=== PATIENT | female | born 1975 | race Caucasian/White ===

== ENCOUNTER 2019-03-13 23:23 | Emergency (ER) | payer BC, OTHER ==
[2019-03-13] MEDS ORDERED: Metoprolol Tartrate 25 MG Tab PO ONE (23:30)
[2019-03-13] MEDS ORDERED: LORazepam 0.5 MG Tab PO ONE (23:30)
[2019-03-14 00:07] LABS: CHLORIDE,CL 105 mmol/L (98-107); SODIUM,NA 140 mmol/L (136-145)
--- NOTE | 2019-03-14 00:21 | EDM.PDOC ---
ED HPI GENERAL MEDICAL PROBLEM - General Chief Complaint: General Stated Complaint: Generalized unwell, dizziness, HTN Time Seen by Provider: 03/13/19 23:39 Source of Information: Reports: Patient History Limitations: Reports: No Limitations - History of Present Illness INITIAL COMMENTS - FREE TEXT/NARRATIVE: Patient comes to ER complaining of not feeling well over the last few days. Fatigued, sometimes light headed. Tingly arms/legs at times. 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 Knows she has had elevated BP in past that was being 'watched' but was not started on medication. Denies fever/chills. No new meds/supplements. No headaches/vision changes/other HEENT changes. Resp negative for cough/SOB/chest discomfort. CV: heart felt like it was pounding at times, but no tachycardia/chest pain. GI negative for nausea/emesis/appetite change/bowel changes. negative for dysuria/UTI complaints. Neuro negative for one sided weakness/focal changes other than above mentioned intermittent generalized tingling. psych negative for acute changes. Did have family member recently of an aneurysm and friend of [place]. - Related Data Allergies Allergy/AdvReac Type Severity Reaction Status Date / Time No Known Allergies Allergy Verified 03/13/19 23:24 Home Meds: Home Meds Metoprolol Succinate 25 mg PO DAILY #10 tab.er.24h 03/14/19 [Rx] Past Medical History HEENT History: Reports: Impaired Vision Cardiovascular History: Reports: Other (See Below) Other Cardiovascular History: Borderline hypertension without medical treatment Respiratory History: Reports: Other (See Below) Other Respiratory History: Exercise induced asthma in highschool and college BLIND EYELETTER History: Reports: Other (See Below) Other BLIND EYELETTER History: 3 c-sections - Past Surgical History Musculoskeletal Surgical History: Reports: Other (See Below) Other Musculoskeletal Surgeries/Procedures:: Left ACL repair Social & Family History - Tobacco Use Smoking Status *Q: Current Every Day Smoker Years of Tobacco use: 20 Packs/Tins Daily: 1 Smoking Cessation Information Provided To Patient: Patient Refused - Caffeine Use Caffeine Use: Reports: Coffee, Soda - Alcohol Use Alcohol Use History: No - Recreational Drug Use Recreational Drug Use: No ED ROS GENERAL - Review of Systems Review Of Systems: ROS reveals no pertinent complaints other than HPI. ED EXAM, GENERAL - Physical Exam Exam: See Below Exam Limited By: No Limitations General Appearance: Alert, No Apparent Distress, Obese Eye Exam: Bilateral Eye: EOMI, PERRL Ears: Normal External Exam, Hearing Grossly Normal Nose: No: Nasal Deformity, Nasal Swelling, Nasal Drainage Throat/Mouth: Normal Lips, Normal Voice, No Airway Compromise Head: Atraumatic, Normocephalic Neck: Normal Inspection, Supple, Non-Tender, Full Range of Motion Respiratory/Chest: No Respiratory Distress, Lungs Clear, Normal Breath Sounds, No Accessory Muscle Use, Chest Non-Tender Cardiovascular: Normal Peripheral Pulses, Regular Rate, Rhythm, No Edema, No Murmur Peripheral Pulses: 2+: Radial (L), Radial (R), Dorsalis Pedis (L), Dorsalis Pedis (R) GI/Abdominal: Normal Bowel Sounds, Soft, Non-Tender, No Distention (Female) Exam: Deferred Rectal (Female) Exam: Deferred Back Exam: No: CVA Tenderness (L), CVA Tenderness (R), Muscle Spasm Extremities: Normal Inspection, Non-Tender, No Pedal Edema, Normal Capillary Refill Neurological: Alert, Oriented, Normal Cognition, Normal Gait, No Motor/Sensory Deficits Psychiatric: Normal Affect, Normal Mood Skin Exam: Warm, Dry, Intact, Normal Color, No Rash EKG INTERPRETATION EKG Date: 03/14/19 Time: 23:41 Rhythm: NSR Rate (Beats/Min): 74 [place]: Normal P-Wave: Present QRS: Normal ST-T: Normal QT: Normal Comparison: NA - No Prior EKG Course - Vital Signs Last Recorded V/S: Last Vital Signs Temp 36.7 C 03/13/19 23:30 Pulse 71 03/14/19 00:38 Resp 15 03/14/19 01:40 BP 148/90 H 03/14/19 01:40 Pulse Ox 99 03/14/19 01:40 - Orders/Labs/Meds Orders: Active Orders 24 hr Category Date Time Status EKG Documentation Completion [RC] ASDIRECTED Care 03/13/19 23:31 Active EKG 12 Lead [EK] Routine Ther 03/13/19 23:31 Ordered Labs: Laboratory Tests 03/13/19 03/13/19 03/14/19 Range/Units 23:40 23:40 00:00 WBC 8.2 (4.0-10.2) K/uL RBC 4.64 (3.77-5.09) M/uL Hgb 12.4 (11.7-15.5) g/dL Hct 38.2 (34.0-46.0) % MCV 82.3 L (84.0-98.0) fL MCH 26.7 L (28.2-33.3) pg MCHC 32.5 (31.7-36.0) g/dL RDW 15.8 H (11.2-14.1) % Plt Count 278 (150-350) K/uL Neut % (Auto) 59.2 (45.0-80.0) % Lymph % (Auto) 32.1 (10.0-50.0) % Stanton % (Auto) 7.3 (2.0-14.0) % Eos % (Auto) 1.2 (0.0-5.0) % Baso % (Auto) 0.2 (0.0-2.0) % Neut # (Auto) 4.83 (1.40-7.00) K/uL Lymph # (Auto) 2.62 (0.50-3.50) K/uL Stanton # (Auto) 0.60 (0.00-1.00) K/uL Eos # (Auto) 0.10 (0.00-0.50) K/uL Baso # (Auto) 0.02 (0.00-0.20) K/uL Sodium 140 (136-145) mmol/L Potassium 3.6 (3.5-5.1) mmol/L Chloride 105 (98-107) mmol/L Carbon Dioxide 23.3 (21.0-32.0) mmol/L BUN 15 (7-18) mg/dL Creatinine 0.87 (0.51-1.17) mg/dL Est Cr Clr Drug Dosing 93.19 mL/min Estimated GFR (MDRD) > 60 mL/min Glucose 104 (74-106) mg/dL Calcium 9.4 (8.5-10.1) mg/dL Magnesium 1.9 (1.8-2.4) mg/dL Total Bilirubin 0.2 (0.2-1.0) mg/dL AST 16 (15-37) U/L ALT 25 (12-78) U/L Alkaline Phosphatase 70 (46-116) IU/L Total Protein 7.4 (6.4-8.2) g/dL Albumin 3.6 (3.4-5.0) g/dL TSH, Ultra Sensitive 2.827 (0.358-3.740) mIU/mL Meds: Medications Discontinued Medications Generic Name Dose Route Start Last Admin Trade Name Freq PRN Reason Stop Dose Admin Lorazepam 0.5 mg 03/13/19 23:30 03/13/19 23:38 Ativan PO 03/13/19 23:31 0.5 mg ONETIME ONE Administration Metoprolol Succinate 25 mg 03/14/19 00:30 03/14/19 00:38 Toprol Xl PO 03/14/19 00:31 25 mg ONETIME ONE Administration Metoprolol Tartrate 25 mg 03/13/19 23:30 03/13/19 23:38 Lopressor PO 03/13/19 23:31 25 mg ONETIME ONE Administration - Re-Assessments/Exams Free Text/Narrative Re-Assessment/Exam: 03/14/19 00:22 Initial BP quite elevated. Received single dose of Metoprolol and Ativan. Gradual improvement of BP observed over time. Patient stated that she felt much improved. Time spent discussing stress, stress modifiers, lifestyle change/dietary change to help with stress and hypertension. Will Rx patient 10 days of Metoprolol. She is to make a follow up appointment with the clinic for next Monday or Monday for recheck and med adjustment as needed. To purchase a BP monitor for home use and start monitoring own BP and keep diary. Precautions reviewed. To follow up as needed otherwise. Free Text/Narrative Re-Assessment/Exam: 03/14/19 02:27 Patient discharged once BP improved to 148/90. Complaints of feeling lightheaded/heart pounding resolved at that time. Departure - Departure Time of Disposition: 02:00 Disposition: Home, Self-Care 01 Condition: Good Clinical Impression: Anxiety about health, Tobacco dependence Hypertension Qualifiers: Hypertension type: unspecified Qualified Code(s): I10 - Essential (primary) hypertension - Discharge Information *PRESCRIPTION DRUG MONITORING PROGRAM REVIEWED*: Not Applicable *COPY OF PRESCRIPTION DRUG MONITORING REPORT IN PATIENT DAVID: Not Applicable Prescriptions: Metoprolol Succinate 25 mg PO DAILY #10 tab.er.24h Instructions: Metoprolol extended-release tablets, How to Take Your Blood Pressure, [id number], Hypertension, [id number] Referrals: PCP,None [Primary Care Provider] - Forms: ED Department Discharge Additional Instructions: Buy a home BP monitor. Keep record of blood pressures three times a day for now. Make follow up appointment for recheck at clinic for Monday or Monday. Further medication adjustments may be needed. Highly recommend diet changes as discussed, in addition to relaxation techniques reviewed. Recommend 500mg daily of Magnesium Glycinate or Taurate supplementation to help with hypertension. Also recommend [id number] units daily of Vit D with K Follow up as needed if problems return. - My Orders Last 24 Hours: My Active Orders 03/13/19 23:31 EKG Documentation Completion [RC] ASDIRECTED EKG 12 Lead [EK] Routine - Assessment/Plan Last 24 Hours: My Active Orders 03/13/19 23:31 EKG Documentation Completion [RC] ASDIRECTED EKG 12 Lead [EK] Routine
[2019-03-14] MEDS ORDERED: Metoprolol Succinate 25 MG Tab.ER PO ONE (00:30)
== END 2019-03-14 01:45 | disposition home or self-care (01) ==
LOC: LL.ED 23:23
DX: I10 Essential (primary) hypertension (principal); F41.9 Anxiety disorder, unspecified; F17.210 Nicotine dependence, cigarettes, uncomplicated; Z79.899 Other long term (current) drug therapy
CPT/HCPCS: 36415; 80053; 83735; 84443; 85025; 93005; 99284-25; A9270-GY